=== PATIENT | female | born 1940 | race Caucasian/White ===

== ENCOUNTER → 2024-04-19 06:54 | Outpatient (REF) | payer MEDICARE, OTHER, SELFPAY ==
[2024-04-19 09:01] LABS: Hemoglobin 14.3 g/dL (12.0-16.0); Mean Corp Hgb Conc. 32.5 g/dL (33.0-37.0); Mean Corpuscular Volume 86.3 fL (81.0-99.0); Mean Platelet Volume 10.9 fL (7.4-10.4); Platelet Count 322 10^3/uL (130-400); Red Cell Dist. Width 13.7 % (11.5-14.5); White Blood Cell Count 6.3 10^3/uL (4.8-10.8)
[2024-04-19 09:25] LABS: Blood Urea Nitrogen 18 mg/dl (7-17); Calcium 9.5 mg/dl (8.4-10.2); Carbon Dioxide 26 mmol/L (22-30); Chloride 107 mmol/L (98-107); Glucose 82 mg/dl (70-99); Potassium 4.8 mmol/L (3.5-5.1); Sodium 141 mmol/L (135-145); eGFR > 60.00
== END ==
LOC: SDSPAT 06:54
PROVIDERS: ATTENDING PHYSICIAN Otolaryngology; FAMILY PHYSICIAN Family Medicine
DX: Z01.818 Encounter for other preprocedural examination (principal)
CPT/HCPCS: 36415; 80048; 85027; 93005

== ENCOUNTER → 2024-04-21 07:22 | Outpatient (REF) | payer MEDICARE, OTHER, SELFPAY | LOC: HWWDC 07:22 | PROVIDERS: ATTENDING PHYSICIAN Family Medicine | DX: Z12.31 Encounter for screening mammogram for malignant neoplasm of breast (principal) | CPT/HCPCS: 77063; 77067 ==

== ENCOUNTER 2024-04-26 06:20 | Day surgery (SDC) | payer MEDICARE, OTHER, SELFPAY ==
[2024-04-19 07:04] VITALS: BMI 23.9
[2024-04-26 07:53] VITALS: BMI 23.9; BMI 24.2
[2024-04-26 07:54] VITALS: BP 133/76
[2024-04-26] MEDS: NORMOSOL-R 1000 IV (08:20)
[2024-04-26 09:12] VITALS: BP 119/63
[2024-04-26 09:30] VITALS: BP 126/72
[2024-04-26 09:45] VITALS: BP 131/77
== END 2024-04-26 10:00 | disposition home or self-care (01) ==
LOC: SDS 06:20
PROVIDERS: ATTENDING PHYSICIAN Otolaryngology
DX: H69.83 Other specified disorders of Eustachian tube, bilateral (principal); H65.21 Chronic serous otitis media, right ear
CPT/HCPCS: 69436

== ENCOUNTER → 2024-07-24 06:58 | Outpatient (REF) | payer MEDICARE, OTHER, SELFPAY ==
[2024-07-24 11:02] LABS: % Basophils 1.3 % (0-2); % Eosinophils 3.7 % (0-6); % Immature Granulocytes 0.2 % (0-0.5); % Lymphocytes 33.3 % (20.5-51.1); % Monocytes 7.5 % (1.7-9.3); Absolute Basophils 0.1 10^3/uL (0-0.2); Absolute Eosinophils 0.2 10^3/uL (0-0.7); Absolute Lymphocytes 2.1 10^3/uL (1.2-3.4); Absolute Monocytes 0.5 10^3/uL (0.1-0.6); Absolute Neutrophils 3.4 10^3/uL (1.4-6.5); Hematocrit 43.7 % (37.0-47.0); Hemoglobin 14.1 g/dL (12.0-16.0); Mean Corp Hgb Conc. 32.3 g/dL (33.0-37.0); Mean Corpuscular Hgb 28.4 pg (27.0-31.0); Mean Corpuscular Volume 87.9 fL (81.0-99.0); Mean Platelet Volume 10.8 fL (7.4-10.4); Nucleated Red Blood Cells % 0 %; Platelet Count 281 10^3/uL (130-400); Red Blood Cell Count 4.97 10^6/uL (4.20-5.40); Red Cell Dist. Width 14.2 % (11.5-14.5); White Blood Cell Count 6.3 10^3/uL (4.8-10.8)
[2024-07-24 11:14] LABS: ALT (SGPT) 19 U/L (0-35); AST (SGOT) 31 U/L (14-36); Albumin 4.1 g/dl (3.5-5.0); Alkaline Phosphatase 113 U/L (38-126); Blood Urea Nitrogen 16 mg/dl (7-17); Calcium 9.6 mg/dl (8.4-10.2); Carbon Dioxide 25 mmol/L (22-30); Chloride 105 mmol/L (98-107); Glucose 94 mg/dl (70-99); HDL Cholesterol 64 mg/dl; LDL Cholesterol, Calculated 130 mg/dl; Potassium 4.5 mmol/L (3.5-5.1); Sodium 144 mmol/L (135-145); Total Cholesterol 212 mg/dl (50-199); Total Protein 6.6 g/dl (6.3-8.2); Triglyceride 92 mg/dl (10-149); Very Low Density Lipoprotein 18 mg/dl (0-30); eGFR > 60.00
== END ==
LOC: HWLAB 06:58
PROVIDERS: ATTENDING PHYSICIAN Family Medicine
DX: E89.0 Postprocedural hypothyroidism (principal); M85.89 Other specified disorders of bone density and structure, multiple sites
CPT/HCPCS: 36415; 80053; 80061; 84443; 85025

== ENCOUNTER → 2024-10-16 13:58 | Outpatient (REF) | payer MEDICARE, OTHER, SELFPAY ==
[2024-10-16 16:24] LABS: Urine Albumin Negative (Neg - Trace); Urine Bilirubin Negative (Negative); Urine Character Clear (Clear); Urine Color Straw; Urine Glucose Negative (Negative); Urine Ketone Negative (Negative); Urine Leukocyte Trace (Negative); Urine Nitrite Negative (Negative); Urine Occult Blood Negative (Negative); Urine Urobilinogen Negative (Neg - 1+)
[2024-10-16 16:25] LABS: % Basophils 1.3 % (0-2); % Immature Granulocytes 0.4 % (0-0.5); % Lymphocytes 33.4 % (20.5-51.1); % Monocytes 7.4 % (1.7-9.3); % Neutrophils 55.5 % (42.2-75.2); Absolute Basophils 0.1 10^3/uL (0-0.2); Absolute Eosinophils 0.1 10^3/uL (0-0.7); Absolute Lymphocytes 2.3 10^3/uL (1.2-3.4); Absolute Monocytes 0.5 10^3/uL (0.1-0.6); Absolute Neutrophils 3.9 10^3/uL (1.4-6.5); Hematocrit 43.4 % (37.0-47.0); Hemoglobin 14.1 g/dL (12.0-16.0); Mean Corp Hgb Conc. 32.5 g/dL (33.0-37.0); Mean Corpuscular Hgb 29.4 pg (27.0-31.0); Mean Corpuscular Volume 90.6 fL (81.0-99.0); Mean Platelet Volume 11.1 fL (7.4-10.4); Nucleated Red Blood Cells % 0 %; Platelet Count 298 10^3/uL (130-400); Red Blood Cell Count 4.79 10^6/uL (4.20-5.40); Red Cell Dist. Width 14.2 % (11.5-14.5)
[2024-10-16 16:27] LABS: ALT (SGPT) 20 U/L (0-35); AST (SGOT) 29 U/L (14-36); Alkaline Phosphatase 103 U/L (38-126); Blood Urea Nitrogen 17 mg/dl (7-17); Calcium 9.4 mg/dl (8.4-10.2); Carbon Dioxide 30 mmol/L (22-30); Chloride 105 mmol/L (98-107); Glucose 74 mg/dl (70-99); Potassium 4.3 mmol/L (3.5-5.1); Sodium 141 mmol/L (135-145); Total Bilirubin 0.6 mg/dl (0.2-1.3); Total Protein 6.6 g/dl (6.3-8.2); eGFR > 60.00
[2024-10-16 17:47] LABS: Urine Squamous Cell >30 /LPF (Few)
[2024-10-16 17:48] LABS: Urine Bacteria Many (Negative); Urine Red Blood Cell 0-2 /HPF (0-2); Urine White Cell 16-20 /HPF (0-5)
== END ==
LOC: CLAB 13:58
PROVIDERS: ATTENDING PHYSICIAN Family Medicine
DX: R10.2 Pelvic and perineal pain (principal); R19.4 Change in bowel habit; R14.0 Abdominal distension (gaseous); R68.81 Early satiety
CPT/HCPCS: 36415; 80053; 81003; 81015; 85025; 87077; 87086; 87186

== ENCOUNTER → 2024-10-19 08:01 | Outpatient (REF) | payer MEDICARE, OTHER, SELFPAY | LOC: HWRAD 08:01 | PROVIDERS: ATTENDING PHYSICIAN Family Medicine | DX: R10.2 Pelvic and perineal pain (principal); R19.4 Change in bowel habit; R14.0 Abdominal distension (gaseous); R68.81 Early satiety | CPT/HCPCS: 74177; Q9967 ==

== ENCOUNTER → 2024-10-24 06:38 | Outpatient (REF) | payer MEDICARE, OTHER, SELFPAY | LOC: HWLAB 06:38 | PROVIDERS: ATTENDING PHYSICIAN Family Medicine | DX: N39.0 Urinary tract infection, site not specified (principal) | CPT/HCPCS: 87077; 87086 ==

== ENCOUNTER → 2025-04-27 06:36 | Outpatient (REF) | payer MEDICARE, OTHER, SELFPAY | LOC: HWWDC 06:36 | PROVIDERS: ATTENDING PHYSICIAN Family Medicine | DX: Z12.31 Encounter for screening mammogram for malignant neoplasm of breast (principal) | CPT/HCPCS: 77063; 77067 ==

== ENCOUNTER → 2025-05-09 09:11 | Outpatient (REF) | payer MEDICARE, OTHER, SELFPAY | LOC: HWRAD 09:11 | PROVIDERS: ATTENDING PHYSICIAN Internal Medicine Critical Care Medicine; FAMILY PHYSICIAN Family Medicine | DX: J45.909 Unspecified asthma, uncomplicated (principal) | CPT/HCPCS: 71046 ==

== ENCOUNTER → 2025-06-28 08:29 | Outpatient (REF) | payer MEDICARE, OTHER, SELFPAY ==
[2025-06-28 10:33] LABS: Blood Urea Nitrogen 18 mg/dl (7-17)
== END ==
LOC: HWLAB 08:29
PROVIDERS: ATTENDING PHYSICIAN Otolaryngology; FAMILY PHYSICIAN Family Medicine
DX: Z13.5 Encounter for screening for eye and ear disorders (principal)
CPT/HCPCS: 36415; 82565; 84520

== ENCOUNTER → 2025-08-23 06:38 | Outpatient (REF) | payer MEDICARE, OTHER, SELFPAY ==
[2025-08-23 09:21] LABS: Hematocrit 43.8 % (37.0-47.0); Hemoglobin 14.2 g/dL (12.0-16.0); Mean Corp Hgb Conc. 32.4 g/dL (33.0-37.0); Mean Corpuscular Volume 89.2 fL (81.0-99.0); Nucleated Red Blood Cells % 0 %; Platelet Count 276 10^3/uL (130-400); Red Cell Dist. Width 13.5 % (11.5-14.5)
[2025-08-23 09:41] LABS: Urine Character Clear (Clear)
[2025-08-23 09:55] LABS: ALT (SGPT) 19 U/L (0-35); AST (SGOT) 25 U/L (14-36); Albumin 4.3 g/dl (3.5-5.0); Alkaline Phosphatase 90 U/L (38-126); Blood Urea Nitrogen 16 mg/dl (7-17); Calcium 9.4 mg/dl (8.4-10.2); Carbon Dioxide 26 mmol/L (22-30); Chloride 109 mmol/L (98-107); Glucose 96 mg/dl (70-99); HDL Cholesterol 66 mg/dl; Potassium 4.5 mmol/L (3.5-5.1); Sodium 141 mmol/L (135-145); Total Protein 7.2 g/dl (6.3-8.2); eGFR > 60.00
[2025-08-23 09:56] LABS: LDL Cholesterol, Calculated 120 mg/dl; Very Low Density Lipoprotein 19 mg/dl (0-30)
[2025-08-23 10:05] LABS: Urine Red Blood Cell 0-2 /HPF (0-2)
[2025-08-23 10:19] LABS: TSH 7.73 uIU/ml (0.47-4.68)
[2025-08-23 10:21] LABS: Cortisol, Random 17.9 ug/dl
== END ==
LOC: HWLAB 06:38
PROVIDERS: ATTENDING PHYSICIAN Family Medicine
DX: E23.6 Other disorders of pituitary gland (principal); E89.0 Postprocedural hypothyroidism; Z86.39 Personal history of other endocrine, nutritional and metabolic disease; M85.89 Other specified disorders of bone density and structure, multiple sites; E78.00 Pure hypercholesterolemia, unspecified
CPT/HCPCS: 36415; 80053; 80061; 81003; 81015; 82533; 83003; 84146; 84443; 85025

== ENCOUNTER → 2025-09-04 06:35 | Outpatient (REF) | payer MEDICARE, OTHER, SELFPAY | LOC: HWLAB 06:35 | PROVIDERS: ATTENDING PHYSICIAN Family Medicine | DX: R82.90 Unspecified abnormal findings in urine (principal) | CPT/HCPCS: 87077; 87086 ==

== ENCOUNTER → 2025-10-08 11:58 | Outpatient (REF) | payer MEDICARE, OTHER, SELFPAY ==
[2025-10-08 12:57] LABS: Blood Urea Nitrogen 14 mg/dl (7-17); Calcium 9.3 mg/dl (8.4-10.2); Carbon Dioxide 27 mmol/L (22-30); Chloride 105 mmol/L (98-107); Glucose 117 mg/dl (70-99); Potassium 4.8 mmol/L (3.5-5.1); Sodium 138 mmol/L (135-145); eGFR > 60.00
[2025-10-08 13:26] LABS: TSH 1.28 uIU/ml (0.47-4.68)
== END ==
LOC: REG 11:58
PROVIDERS: ATTENDING PHYSICIAN Family Medicine
DX: E89.0 Postprocedural hypothyroidism (principal); R79.9 Abnormal finding of blood chemistry, unspecified; Z01.818 Encounter for other preprocedural examination
CPT/HCPCS: 36415; 80048; 84443